=== PATIENT | female | born 1985 | race Caucasian/White ===

== ENCOUNTER 2018-12-04 20:46 | Inpatient (IN) | payer OTHER ==
[~2018-12-04] VITALS: Ht 165.1 cm; Wt 91.0 kg
[~2018-12-04 20:46] MED LIST: JOLIVETTE0.35 MG PO; NORCO 5-325 TA1 EACH PO; NUVARING VAGIN1 EACH VAGINAL; ONDANSETRON ODT4 MG SL; PRENATAL 19 TA1 EACH PO; PRENATAL COMPL1 EACH PO; ZOFRAN ODT8 MG PO
--- NOTE | 2018-12-06 09:00 | PR ---
[facility] [address] [facility] [place], [place] [address] Signed PP Progress Notes Datetime Report Generated by PAMELA: 12/06/2018 09:00 SUBJECTIVE: [id number] Pain: Within normal limits Nausea/Vomiting: Denies Vital Signs: [id number] Vital Signs: Reviewed; Within Normal Limits EXAM: [id number] Cardiovascular: Not Done Respiratory: Not Done Abdomen/Uterus: Abnormal Lochia: Normal Vulva/Perineum: Not Done Breasts: Not Done CVA Tenderness: Not Done Extremities: Normal Incision: Not Applicable Progress: Normal Exam Comments: Fundus firm, NT @ U. H/H 13.7/41.2, WBC 10.6, plat 112k IMPRESSION/PLAN/PROCEDURES: [id number] Impression: Normal progression Plan: Discharge Procedures: None Progress Notes: Doing well. She is ready for D/C. Signing Physician: Rebeca Carlson MD Copies: ~ *Electronically Signed* 12/06/18 0900 REBECA CARLSON MD PATIENT NAME: MERLE AGUILERA PROGRESS NOTE DATE OF : 89 PHYSICIAN: REBECA CARLSON MD RPT #: [id number] REPORT IS CONFIDENTIAL AND NOT TO BE RELEASED WITHOUT AUTHORIZATION
== END 2018-12-06 16:25 | disposition home or self-care (01) | DRG 807 ==
LOC: FBCO 20:46 → FBC 22:00
PROVIDERS: ADMIT Obstetrics & Gynecology
PROC: 10E0XZZ Delivery of Products of Conception, External Approach (ICD-10-PCS; principal; 2018-12-05)
PROC: 00HU33Z Insertion of Infusion Device into Spinal Canal, Percutaneous Approach (ICD-10-PCS; 2018-12-05)
PROC: 3E0R3BZ Introduction of Anesthetic Agent into Spinal Canal, Percutaneous Approach (ICD-10-PCS; 2018-12-05)
DX: O42.92 Full-term premature rupture of membranes, unspecified as to length of time between rupture and onset of labor (principal); Z37.0 Single live birth; Z3A.38 38 weeks gestation of pregnancy; O43.113 Circumvallate placenta, third trimester
CPT/HCPCS: 36415; 82565; 84112; 84450; 84520; 84550; 85025; 85027; J2590; J7120

== ENCOUNTER 2022-11-15 11:30 | Inpatient (IN) | payer OTHER ==
[~2022-11-15] VITALS: Ht 162.6 cm; Wt 98.9 kg
[2022-11-16 07:42] VITALS: BP 136/84
--- NOTE | 2022-11-16 08:20 | PR ---
[facility] [address] [facility] [place], [place] [address] Signed Progress Notes IP Datetime Report Generated by PAMELA: 11/16/2022 08:20 PROGRESS NOTES: [id number] Impression: Reassuring Heart Rate Procedures: Sterile Vag Exam Other Procedures: attempted AROM Plan: Continue Present Management VITAL SIGNS: [id number] Vital Signs: Reviewed; Within Normal Limits EXAM: [id number] Dilatation: 4.0 Effacement: 70 Station: -2 Contractions: occ MEMBRANES: [id number] Comments: Will watch for now to see if SROM occurs. Will recheck in approx 2 hrs. FETUS A: [id number] FHR Baseline: 135 Variability: Moderate 6-25bpm Accelerations: 15X15 Decelerations: None FHR Category: Category I Presentation: Vertex Comments on Fetus A: no evidence of metabolic acidosis FETUS B: [id number] Signing Physician: Rebeca Carlson MD Copies: ~ *Electronically Signed* 11/16/22819 REBECA CARLSON MD PATIENT NAME: MERLE AGUILERA PROGRESS NOTE DATE OF : 89 PHYSICIAN: REBECA CARLSON MD RPT #: [id number] REPORT IS CONFIDENTIAL AND NOT TO BE RELEASED WITHOUT AUTHORIZATION
--- NOTE | 2022-11-16 10:50 | PR ---
[facility] [address] [place], [place] [address] Signed Progress Notes IP Datetime Report Generated by PAMELA: 11/16/2022 10:50 PROGRESS NOTES: [id number] Impression: Reassuring Heart Rate Procedures: Scalp Electrode; Sterile Vag Exam Other Procedures: attempted AROM Plan: Continue Present Management VITAL SIGNS: [id number] Vital Signs: Reviewed; Within Normal Limits EXAM: [id number] Dilatation: 4.5 Effacement: 80 Station: -2 Contractions: occ MEMBRANES: [id number] ROM Note: Aldo ORTIZ attempted to rupture membranes, unsuccessful at this time. Membranes remain intact. Comments: Progressing. Will continue. FETUS A: [id number] FHR Baseline: 135 Variability: Moderate 6-25bpm Accelerations: 15X15 Decelerations: None FHR Category: Category I Presentation: Vertex Comments on Fetus A: no evidence of metabolic acidosis FETUS B: [id number] Signing Physician: Rebeca Carlson MD Copies: ~ *Electronically Signed* 11/16/22 1050 REBECA CARLSON MD PATIENT NAME: MAKAYLA AGUILERASary MCCRAY PROGRESS NOTE DATE OF : 89 PHYSICIAN: REBECA CARLSON MD RPT #: [id number] REPORT IS CONFIDENTIAL AND NOT TO BE RELEASED WITHOUT AUTHORIZATION
--- NOTE | 2022-11-16 12:49 | PR ---
[facility] [address] [place], [place] [address] Signed Progress Notes IP Datetime Report Generated by PAMELA: 11/16/2022 12:49 PROGRESS NOTES: [id number] Impression: Reassuring Heart Rate Procedures: Sterile Vag Exam Other Procedures: attempted AROM Plan: Augmentation VITAL SIGNS: [id number] Vital Signs: Reviewed; Within Normal Limits EXAM: [id number] Dilatation: 4.5 Effacement: 80 Station: -2 Contractions: occ MEMBRANES: [id number] ROM Note: Aldo ORTIZ attempted to rupture membranes, unsuccessful at this time. Membranes remain intact. Comments: No real change and still comfortable. Suspect contractions need to be stronger. Will begin low dose pit. FETUS A: [id number] FHR Baseline: 135 Variability: Moderate 6-25bpm Accelerations: 15X15 Decelerations: None FHR Category: Category I Presentation: Vertex Comments on Fetus A: no evidence of metabolic acidosis FETUS B: [id number] Signing Physician: Rebeca Carlson MD Copies: ~ *Electronically Signed* 11/16/22 1249 REBECA CARLSON MD PATIENT NAME: MARKGRAFMERLE PROGRESS NOTE DATE OF : 89 PHYSICIAN: REBECA CARLSON MD RPT #: [id number] REPORT IS CONFIDENTIAL AND NOT TO BE RELEASED WITHOUT AUTHORIZATION
--- NOTE | 2022-11-17 07:29 | PR ---
[facility] [address] [facility] [place], [place] [address] Signed PP Progress Notes Datetime Report Generated by CPMaria Dolores: 11/17/2022 07:29 SUBJECTIVE: [id number] Pain: Within Normal Limits Nausea/Vomiting: Denies Vital Signs: [id number] Vital Signs: Reviewed; Within Normal Limits Cardiovascular: Not Done Respiratory: Not Done Abdomen/Uterus: Abnormal Lochia: Normal Vulva/Perineum: Not Done Breasts: Not Done CVA Tenderness: Not Done Extremities: Normal Incision: Not Applicable Progress: Normal Exam Comments: Fundus firm, NT @ U H/H 11.9/37.1, plat 171k IMPRESSION/PLAN/PROCEDURES: [id number] Impression: Normal Progression Plan: Discharge Procedures: None Progress Notes: Doing well. She desires D/C. Signing Physician: Rebeca Carlson MD Copies: ~ *Electronically Signed* 11/17/22728 REBECA CARLSON MD PATIENT NAME: MERLE AGUILREA PROGRESS NOTE DATE OF : 89 PHYSICIAN: REBECA CARLSON MD RPT #: [id number] REPORT IS CONFIDENTIAL AND NOT TO BE RELEASED WITHOUT AUTHORIZATION
== END 2022-11-17 17:55 | disposition home or self-care (01) | DRG 807 ==
LOC: FBC 11-16 06:58
PROVIDERS: ADMIT Obstetrics & Gynecology; ATTEND Obstetrics & Gynecology
PROC: 10E0XZZ Delivery of Products of Conception, External Approach (ICD-10-PCS; principal; 2022-11-16)
DX: O99.824 Streptococcus B carrier state complicating childbirth (principal); Z37.0 Single live birth; O99.214 Obesity complicating childbirth; Z67.20 Type B blood, Rh positive; E66.09 Other obesity due to excess calories; O99.344 Other mental disorders complicating childbirth; F41.9 Anxiety disorder, unspecified; Z3A.39 39 weeks gestation of pregnancy; Z90.49 Acquired absence of other specified parts of digestive tract; Z90.89 Acquired absence of other organs; Z98.890 Other specified postprocedural states; Z91.018 Allergy to other foods; Z79.899 Other long term (current) drug therapy
CPT/HCPCS: 36415; 85027; 86850; 86900; 86901; A9270; J2540; J2590